=== PATIENT | male | born 1950 | race Caucasian/White ===

== ENCOUNTER 2018-11-19 01:23 | Inpatient (IN) ==
[2018-11-19 02:17] LABS: Hematocrit 43.9 % (37.5-50.1); Hemoglobin 14.7 g/dL (12.9-16.9); Mean Corpuscular HGB Conc 33.5 g/dL (31.6-35.5); Mean Corpuscular Hemoglobin 27.9 pg (28.0-33.3); Mean Corpuscular Volume 83.5 fL (83.0-100.0); Mean Platelet Volume 9.3 fL (9.4-12.4); Platelet Count 250 K/mcL (140-400); Red Blood Count 5.26 M/mcL (4.19-5.50); Red Cell Distribution Width 14.1 % (11.5-14.5)
[2018-11-19 02:18] LABS: Basophils # 0.1 K/mcL (0.0-0.2); Basophils % 0.8 %; Eosinophils # 0.1 K/mcL (0.0-0.6); Eosinophils % 1.8 %; Immature Granulocytes % 0.8 % (0-4); Lymphocytes # 2.7 K/mcL (0.6-4.6); Lymphocytes % 34.4 %; Monocytes # 0.9 K/mcL (0.0-1.3); Monocytes % 11.2 %
[2018-11-19] MEDS ORDERED: Aspirin 325 MG TABLET PO ONE (02:19)
[2018-11-19] MEDS ORDERED: Nitroglycerin 0.4 MG TAB.SUBL SL ONE (02:20)
--- NOTE | 2018-11-19 02:28 | Emergency Department Note ---
Disposition Clinical Impression: NSTEMI (non-ST elevated myocardial infarction) Disposition: Admitted As Inpatient Condition: Good Chest Pain HPI - General Chief Complaint: ED Chest Pain Stated Complaint: CP Time Seen by Provider: 11/19/18 01:38 Source: patient Mode of arrival: private vehicle Limitations: no limitations Vital Signs Reviewed: Yes Nursing Notes Reviewed: Yes - History of Present Illness HPI Narrative: 68-year-old male presents emergency department for evaluation of chest pain that woke him up from sleep around 12:30 AM. Patient states he was sleeping well when he woke up with a midsternal "heartburn" type pain is about a 6 out of 10, he states it did not go away sick in emergency department. He states it does not radiate, does not move. Nothing makes this pain worse, nothing makes this pain better. 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 He states history includes hypertension for which he takes Hydrocort thiazide/Cipro, some prostate problems, prediabetes. He states he is not on any statin medication. He is not a smoker, no drugs or alcohol use. He states he has never had any cardiac history. He has never been told he has had high cholesterol. Pt complaint: chest pain Onset (ago): hour(s) Time: 00:30 Duration: constant Onset: awoke with symptoms Pain Location: substernal Severity: moderate Severity scale (1-10): 5 Quality: other Pain Radiation: none Improves with: nothing Worsens with: nothing Associated symptoms: Denies: nausea, vomiting, diaphoresis, dyspnea, syncope, palpitations, fever, cough, leg swelling Treatments prior to arrival chest pain: none - Related Data On Oral Contraceptives: No Allergies Allergy/AdvReac Type Severity Reaction Status Date / Time No Known Allergies Allergy Verified 11/19/18 01:54 All systems ED: reviewed and negative except as stated. Review of Systems: As Per HPI Constitutional: Denies: fever, chills Cardiovascular: Reports: chest pain, dyspnea on exertion. Denies: palpitations, orthopnea, edema Respiratory: Denies: cough, dyspnea, wheezes Gastrointestinal: Denies: abdominal pain Musculoskeletal: Denies: back pain Chest Pain PMH - Past Medical History Medical history: Reports: hypertension Psychiatric history: Reports: no psych history - Social History Smoking Status: Never smoker Alcohol use: Reports: none Drug use: Reports: none Physical Exam - General Limitations: no limitations General appearance: alert, in no apparent distress - Head Head exam: atraumatic, normocephalic, normal inspection - Eye Eye exam: Present: normal appearance - ENT ENT exam: mucous membranes moist - Neck Neck exam: Present: normal inspection, full ROM, trachea midline. Absent: tenderness, meningismus - Chest Chest inspection: Present: normal inspection, symmetric chest wall rise - Respiratory Respiratory exam: Present: normal lung sounds bilaterally - Cardiovascular Cardiovascular exam: Present: regular rate, irregular rhythm, normal heart sounds - Abdominal Exam Abdominal exam: Present: soft, Non-Tender, normal bowel sounds - Extremities Exam Extremities exam: Present: normal inspection, full ROM, normal capillary refill. Absent: tenderness, pedal edema - Back Exam Back exam: Present: normal inspection, full ROM. Absent: tenderness - Neurological Exam Neurological exam: Present: alert, oriented X3 - Psychiatric Psychiatric exam: Present: normal affect, normal mood - Skin Skin exam: Present: warm, dry, intact, normal color Course Course Narrative: Well-developed male in acute distress. Respirations are easy and even. Patient was slightly hypertensive upon arrival, he is anxious that he does not appear in any distress. He is nondiaphoretic. Not hypoxic. Heart rate is irregular, noted what appears to be bigeminy on the monitor. Initial EKG completed at 01:37 reveals a sinus rhythm with ventricular rate of 95 beats for minute, [place] interval 172 ms, QTC 438 ms, previous EKG was completed 2002, questioning see elevation in V2 V3, very suspicious EKG, reviewed by attending Dr. Acosta, no obvious contiguous leads of ST elevation however giving changes from previous length of time, symptoms will page for interventi onal cardiology. We will give 325 of aspirin, 1 nitroglycerin, obtain chest x-ray and labs. - Reevaluation(s) Reevaluation #1: EKG had been repeated at 02:36, and this EKG does appear normal. Patient has had one dose of nitroglycerin, it did decrease his pain to less than one, he states he feels just a little bit tender but he really is not having any pain. I did speak with on-call medical support assistant Dr. Carter at 0245 regarding patient presentation, symptoms. First EKG and second EKG were sent to Dr. Carter for review, he states he second one does look better, we should initiate heparin drip, nitroglycerin drip, and given Ventolin to 180 mg crushed in a patient continues to have pain a half hour later we should send a STEMI alert. I did talk to patient and his son, they did verbalize understanding of plans, circumstances. All questions were answered appropriately and fully with no further questions. Time: 02:55 Reevaluation #2: Patient remained chest pain-free, he is doing quite well and no evidence of a STEMI. I did speak with hospitalist regarding patient with agreement to except to hospitalist services. Vital Signs Temperature 98.7 F 11/19/18 01:25 Pulse Rate 101 11/19/18 01:25 Respiratory Rate 16 11/19/18 01:25 Blood Pressure 176/102 11/19/18 01:25 O2 Sat by Pulse Oximetry 93 11/19/18 01:25 Temperature 98.7 F 11/19/18 01:25 Pulse Rate 83 11/19/18 02:00 Respiratory Rate 20 11/19/18 02:00 Blood Pressure 165/108 11/19/18 02:00 O2 Sat by Pulse Oximetry 96 11/19/18 02:00 Oxygen Delivery Oxygen Delivery Room Air Chest Pain - Lab Data Result diagrams: 11/19/18 02:03 Lab Results 11/19/18 Range/Units 02:03 WBC 7.9 (4.3-11.1) K/mcL RBC 5.26 (4.19-5.50) M/mcL Hgb 14.7 (12.9-16.9) g/dL Hct 43.9 (37.5-50.1) % MCV 83.5 (83.0-100.0) fL MCH 27.9 L (28.0-33.3) pg MCHC 33.5 (31.6-35.5) g/dL RDW 14.1 (11.5-14.5) % Plt Count 250 (140-400) K/mcL MPV 9.3 L (9.4-12.4) fL Immature Gran % 0.8 (0-4) % Seg Neutrophils % 51.0 % Lymphocytes % 34.4 % Monocytes % 11.2 % Eosinophils % 1.8 % Basophils % 0.8 % Neutrophils # 4.0 (1.6-8.9) K/mcL Lymphocytes # 2.7 (0.6-4.6) K/mcL Monocytes # 0.9 (0.0-1.3) K/mcL Eosinophils # 0.1 (0.0-0.6) K/mcL Basophils # 0.1 (0.0-0.2) K/mcL Heart Score - Score History: Highly Suspicious EKG: Non Specific repolarisation Disturbance Age: Greater than 65 Risk Factors: 1-2 risk factors Troponin: Greater than 3x normal limit HEART Score Total: 8
[2018-11-19 02:39] LABS: BUN/Creatinine Ratio 24 (6-26); Blood Urea Nitrogen 25 mg/dL (8-23); Carbon Dioxide 27 mEq/L (23-29); Chloride 101 mEq/L (98-107); Glucose 170 mg/dL (70-105); Osmolality,Calculated 294 (280-300); Potassium 3.5 mEq/L (3.5-5.1); Sodium 138 mEq/L (136-145); eGFR For Non-African Americans > 60 (> 60)
[2018-11-19 02:48] LABS: Troponin I 0.29 ng/mL (< 0.04)
[2018-11-19] MEDS ORDERED: *HR* Ticagrelor 90 MG TABLET PO ONE (02:58)
[2018-11-19] MEDS ORDERED: *HR* Heparin 5,000 UNIT/ML VIAL IVP ONE (03:00)
[2018-11-19] MEDS ORDERED: Nitroglycerin 25 MG/250 ML INFUS..BTL IVC SCH (03:00)
[2018-11-19] MEDS ORDERED: *HR* Heparin 5,000 UNIT/ML VIAL IVP PRN ×2 (03:00)
[2018-11-19] MEDS ORDERED: Heparin 25,000 UNIT/250 ML D5W 25,000 UNIT/250 ML IV.SOLN IVC SCH (03:00)
[2018-11-19 03:23] LABS: Prothrombin Time 11.2 Seconds (9.4-12.1)
[2018-11-19 03:25] LABS: Activated Partial Thrombo Time 29.9 Seconds (26.0-36.0)
--- NOTE | 2018-11-19 03:37 | Emergency Department Note ---
Disposition Clinical Impression: NSTEMI (non-ST elevated myocardial infarction) Disposition: Admitted As Inpatient Condition: Good General Adult HPI - General Chief complaint: ED Chest Pain Stated complaint: CP Time Seen by Provider: 11/19/18 01:38 Source: patient Mode of arrival: private vehicle Limitations: no limitations Nursing Notes Reviewed: Yes Vital Signs Reviewed: Yes - History of Present Illness Pain Scale: 5 - Related Data Allergies Allergy/AdvReac Type Severity Reaction Status Date / Time No Known Allergies Allergy Verified 11/19/18 01:54 Constitutional: Denies: fever, chills Cardiovascular: Reports: chest pain, dyspnea on exertion. Denies: palpitations, orthopnea, edema Respiratory: Denies: cough, dyspnea, wheezes Gastrointestinal: Denies: abdominal pain Musculoskeletal: Denies: back pain Past Medical History - Past Medical History Medical history: Reports: hypertension Psychiatric history: Reports: no psych history - Social History Smoking Status: Never smoker Smokeless Tobacco Status: No Alcohol use: Reports: none Drug use: Reports: none Physical Exam - General Limitations: no limitations General appearance: alert, in no apparent distress Course Vital Signs Temperature 98.7 F 11/19/18 01:25 Pulse Rate 101 11/19/18 01:25 Respiratory Rate 16 11/19/18 01:25 Blood Pressure 176/102 11/19/18 01:25 O2 Sat by Pulse Oximetry 93 11/19/18 01:25 Temperature 98.4 F 11/19/18 07:00 Pulse Rate 68 11/19/18 07:00 Respiratory Rate 17 11/19/18 07:00 Blood Pressure 152/100 11/19/18 07:00 O2 Sat by Pulse Oximetry 96 11/19/18 07:00 Oxygen Delivery Oxygen Delivery Room Air Medical Decision Making - Medical Records Medical records reviewed: Yes I reviewed the patient's medical records. - Lab Data Lab results reviewed: Yes I reviewed the patient's lab results. Result diagrams: 11/19/18 02:03 11/19/18 02:03 Lab Results 11/19/18 11/19/18 11/19/18 Range/Units 02:03 02:03 02:03 WBC 7.9 (4.3-11.1) K/mcL RBC 5.26 (4.19-5.50) M/mcL Hgb 14.7 (12.9-16.9) g/dL Hct 43.9 (37.5-50.1) % MCV 83.5 (83.0-100.0) fL MCH 27.9 L (28.0-33.3) pg MCHC 33.5 (31.6-35.5) g/dL RDW 14.1 (11.5-14.5) % Plt Count 250 (140-400) K/mcL MPV 9.3 L (9.4-12.4) fL Immature Gran % 0.8 (0-4) % Seg Neutrophils % 51.0 % Lymphocytes % 34.4 % Monocytes % 11.2 % Eosinophils % 1.8 % Basophils % 0.8 % Neutrophils # 4.0 (1.6-8.9) K/mcL Lymphocytes # 2.7 (0.6-4.6) K/mcL Monocytes # 0.9 (0.0-1.3) K/mcL Eosinophils # 0.1 (0.0-0.6) K/mcL Basophils # 0.1 (0.0-0.2) K/mcL PT 11.2 (9.4-12.1) Seconds INR 1.0 APTT 29.9 (26.0-36.0) Seconds Heparin Anti-Xa, Unfract 0.00 L (0.30-0.70) IU/mL Sodium 138 (136-145) mEq/L Potassium 3.5 (3.5-5.1) mEq/L Chloride 101 (98-107) mEq/L Carbon Dioxide 27 (23-29) mEq/L BUN 25 H (8-23) mg/dL Creatinine 1.06 (0.70-1.30) mg/dL Est GFR ( Amer) > 60 (> 60) Est GFR (Non-Af Amer) > 60 (> 60) BUN/Creatinine Ratio 24 (6-26) Glucose 170 H (70-105) mg/dL Calculated Osmolality 294 (280-300) Calcium 10.0 (8.6-10.3) mg/dL Troponin I 0.29 H* (< 0.04) ng/mL Triglycerides 413 H (< 150) mg/dL Cholesterol 196 (< 200) mg/dL LDL Cholesterol, Calc TNP VLDL Cholesterol, Calc TNP HDL Cholesterol 30 L (40-59) mg/dL Cholesterol/HDL Ratio 6.5 H (0-4.9) - Radiology Data Radiology results reviewed: Yes I reviewed the patient's radiology results. Chest X-Ray 11/19/18 01:30 IMPRESSION: Left basilar atelectasis versus scarring. No acute cardiopulmonary disease. D/ / Ernie Arcos MD / Ernie Arcos MD Interpreting Provider: Ernie Arcos MD - EKG Data EKG #1 EKG attestation: Yes I reviewed and interpreted this EKG. EKG results narrative: EKG shows normal sinus rhythm with ventricular rate is 79. No significant ST segment elevation or depression noted. The ST segment elevation in leads V2 and V3 from the earlier EKG have resolved. EKG #2 EKG attestation: Yes I reviewed and interpreted this EKG. EKG results narrative: EKG shows normal sinus rhythm with ventricular rate is 79. No significant ST segment elevation or depression noted. The ST segment elevation in leads V2 and V3 from the earlier EKG have resolved. Critical Care Time Critical Care Time: Yes Total Critical Care Time: 35 Attestation: Critical care performed: Time is exclusive of separately billable procedures. Time includes: direct patient care, patient reassessment, coordination of patient care, interpretation of data (laboratory data, radiology data, and respiratory data), review of patient's medical records, medical consultation and documentation of patient care. Procedures included in critical care time: Procedures excluded from critical care time: Attestation Statement - Attestation Attestation: I, Mark Acosta MD, personally evaluated this patient and discussed their management with the resident physician. I reviewed the resident's note and agree with the documented findings, medical decision making, and plan of care. 68-year-old male presents to the emergency department with a complaint of some very localized mid to upper substernal chest pain which awoke him from sleep about 12:30 AM this morning. Patient rated the pain a 7 out of 10 at the worst. There was no radiation the pain. No shortness of breath. No palpitations. No nausea or vomiting. No diaphoresis. Prior history of any cardiac problems. He does have a history of hypertension. No history of diabetes or hypercholesterolemia. Nonsmoker. At time of my examination the pain has totally resolved. He did receive a sublingual nitroglycerin here with relief of the pain. He also states that he has had similar pains during the night for the past 2 nights but tonight it would not go away. He also states that for about the past 3 months he has noted when he does any heavy lifting or exertion he developed some mild mid chest discomfort. On examination patient is a well-developed well-nourished well-appearing elderly male in no acute distress. He is alert and oriented 3. There is no cyanosis or diaphoresis. Chest is nontender to palpation. Breath sounds are clear and equal bilaterally. Heart regular rate and rhythm. Abdomen soft and nontender with normal bowel sounds. EKG shows normal sinus rhythm with ventricular rate of 95. There is some ST elevation in leads V2 and V3 with no significant reciprocal changes noted. No arrhythmia or ectopy. A repeat EKG was obtained and showed resolution of the ST elevation in V2 and V3. Chest x-ray shows no acute abnormality. Labs reviewed. Troponin 0.29. Case was discussed with the interventional radiologist, Dr. Carter, and he reviewed the 2 EKGs. He recommended starting the patient on nitro drip and heparin infusion and also giving Brilinta. The patient continues to have pain after 30 minutes he would come in and take the patient to [facility]. The hospitalist, Dr. Larios, was consulted and accepted admission of the patient.
[2018-11-19] MEDS ORDERED: Naloxone 0.4 MG/ML INJ IVP PRN (04:46)
--- NOTE | 2018-11-19 04:54 | Internal Med History&Physical ---
Date of Encounter: 11/19/18 Time of Encounter: 04:51 Internal Medicine - H&P: HPI Chief complaint: Chest Pain Admitted From: Emergency Dept Plans for Post Hospital Care: Home History of present illness: Mr. Golden is a 68 year old male with history of hypertension and BPH presents with chest pain. Patient states that he has had substernal chest pressure for about the last 3 months. He states previously he had only occurred with exertion and improved with rest however over the last couple days the chest pain has occurred at rest. She states that last night he began having chest pressure and he attempted to stretch and move around to get it to go away however it would not go away. At this point he presented to the emergency department. Patient was given aspirin, nitroglycerin in the emergency department and he states this completely resolved his chest pressure. He denies any radiation of the pressure. He denies any associated symptoms including shortness of breath, diaphoresis, nausea, vomiting. He states prior to several months goes never had anything like this before. He denies any history of cardiac disease but does state that his father's side have multiple people of had heart attacks in their 60s and 70s. Discussed with patient who wishes to be full code. Past Med Surg Social Fam HX - Past Medical History Medical history: hypertension Psychiatric history: no psych history - Past Surgical History Surgical History: no surgical history - Social History Smoking Status: Never smoker Smokeless Tobacco Status: No Alcohol use: none Drug use: none - Additional Family History Additional family history: Patient reports father, grandfather, and uncles who have had heart attacks in the 60s and 70s Internal Medicine - H&P: Meds Allergy/AdvReac Type Severity Reaction Status Date / Time No Known Allergies Allergy Verified 11/19/18 01:54 All Systems PM: A 10-system review of systems was performed and is negative for pertinent f indings except as documented above in the HPI. Review of systems: 10 point review of systems was obtained and negative other than stated. - Constitutional Constitutional: no chills, no fever(s) - Cardiovascular Cardiovascular ROS IM: chest pain, no dyspnea, no edema, no palpitations - Respiratory Respiratory: no cough, no dyspnea - Gastrointestinal Gastrointestinal: no abdominal pain, no nausea, no vomiting - Constitutional Vitals: Temp Pulse Resp BP Pulse Ox 98.7 F 84 20 132/87 97 11/19/18 01:25 11/19/18 04:34 11/19/18 04:34 11/19/18 04:34 11/19/18 04:34 General appearance: Present: A&O X 3, pleasant, no acute distress Exam: . - Head Head exam: Present: atraumatic, normal inspection, normocephalic - Eye Eye exam: Present: EOMI, PERRL - ENT ENT exam: Present: mucous membranes moist, normal oropharynx - Neck Neck exam general surgery: Present: full ROM. Absent: tenderness - Respiratory Respiratory exam: Present: CTAB. Absent: rales, rhonchi, wheezes - Cardiovascular Cardiovascular exam: Present: RRR. Absent: gallop, irregular rhythm, rubs, systolic murmur - GI/Abdominal GI/Abdominal exam: Present: normal bowel sounds, soft. Absent: distended, tenderness - Extremities Exam Extremities exam: Present: warm. Absent: pedal edema, tenderness - Back Exam Additional comments: Nontender, soft, mobile mass approximately 2 cm in diameter at midline at the level of T2. - Neurological Exam Neurological exam: Present: alert, CN II-XII intact, oriented X3, no focal deficits - Psychiatric Psychiatric exam: Present: normal affect, normal mood - Skin Skin exam: Present: dry, intact, warm Internal Med - H&P Results - Labs CBC & Chem 7: 11/19/18 02:03 11/19/18 02:03 Labs: Short CBC 11/19/18 Range/Units 02:03 WBC 7.9 (4.3-11.1) K/mcL Hgb 14.7 (12.9-16.9) g/dL Hct 43.9 (37.5-50.1) % Plt Count 250 (140-400) K/mcL Neutrophils # 4.0 (1.6-8.9) K/mcL BMP 11/19/18 02:03 Sodium 138 Potassium 3.5 Chloride 101 Carbon Dioxide 27 BUN 25 H Creatinine 1.06 Glucose 170 H Calcium 10.0 Cardiac Enzymes 11/19/18 Range/Units 02:03 Troponin I 0.29 H* (< 0.04) ng/mL - Impressions ITS Impressions Chest X-Ray 11/19/18 01:30 IMPRESSION: Left basilar atelectasis versus scarring. No acute cardiopulmonary disease. D/ / Ernie Arcos MD / Ernie Arcos MD Interpreting Provider: Ernie Arcos MD - Assessment and Plan (1) NSTEMI (non-ST elevated myocardial infarction) Current Visit: Yes Status: Acute Assessment and plan: Patient presents with typical chest pain that is substernal, exacerbated by activity and relieved by rest, and now has worsened to the point that it occurs at rest. EKG reviewed and shows subtle ST elevation in lead 2 and lead 3 that did resolve on second EKG. These were sent to the product applications scientist by the emergency department and he stated that as long as the patient remains chest pain-free at this time there is no indication for urgent heart catheterization. Troponin noted to be elevated at 0.29, we will recheck in 6 hours. Admit the patient to telemetry, start heparin drip and nitro drip for pain relief. Closely monitor patient if he has any new episodes of chest pain will call cardiology urgently. Patient was given aspirin and Brillinta in the emergency department. Check lipid panel, start statin this evening. We will keep patient nothing by mouth for possible heart catheterization. Patient is at high risk for cardiac complication and due to being on therapeutic heparin infusion. (2) Prediabetes Current Visit: Yes Status: Acute Assessment and plan: Patient states that he is "prediabetic" and does not take any medications for diabetes. Glucose on admission is noted to be 170. We will institute low-dose sliding scale. We will check hemoglobin A1c. (3) HTN (hypertension) Current Visit: Yes Status: Acute Assessment and plan: Patient hypertensive upon arrival with blood pressure 176/102. Has improved to 136/93 with nitroglycerin drip. Patient is unsure exactly of what blood pressure medications he takes. Patient is currently nothing by mouth, will restart home blood pressure medications once he is no longer nothing by mouth and that these are confirmed. Qualifiers: Hypertension type: essential hypertension Qualified Code(s): I10 - Essential (primary) hypertension (4) Lipoma Current Visit: Yes Status: Suspected Assessment and plan: Patient has a soft, mobile mass on the upper part of his back. I did discuss with the patient that this is likely a lipoma and have recommended outpatient follow-up with his PCP for further management options. Qualifiers: Lipoma location: trunk Qualified Code(s): D17.1 - Benign lipomatous kurt plasm of skin and subcutaneous tissue of trunk (5) DVT prophylaxis Current Visit: Yes Status: Acute Assessment and plan: Patient currently on therapeutic heparin drip - Time Spent With Patient Total time spent is greater than 50% in coordination of care (as documented) at patient's floor/unit and/or counseling patient:
[2018-11-19] MEDS ORDERED: *HR* Dextrose 50 % in Water (Syg) 50 ML SYRINGE IVP PRN (04:58)
[2018-11-19] MEDS ORDERED: D5% in Water 1,000 ML IVC PRN (04:58)
[2018-11-19] MEDS ORDERED: Dextrose Gel 15 GM/37.5 ML TUBE PO PRN ×2 (04:58)
[2018-11-19 05:59] LABS: Chol/HDL Ratio 6.5 (0-4.9); Cholesterol 196 mg/dL (< 200); HDL Cholesterol 30 mg/dL (40-59); Triglycerides 413 mg/dL (< 150)
[2018-11-19] MEDS: Insulin LISPRO 300 UNITS/3 ML VIAL SQ SCH ×3 (07:13→18:03)
--- NOTE | 2018-11-19 08:46 | Internal Med Progress Note ---
<Ambrose Wesley N - Last Filed: 11/19/18 13:28> Hospitalist Progress Note - Encounter Date of Encounter: 11/19/18 Time of Encounter: 09:00 - Subjective Interval History: Patient seen and examined at bedside this morning with family present. Patient was admitted with unstable angina and elevated troponin raising concern for non- ST elevated [place]. Overnight patient remained on a nitroglycerin and heparin drip. Asymptomatic throughout the night, no tachycardia, chest pain, or shortness of breath. Repeat troponin this morning was significantly elevated at 48. Stat EKG was obtained which showed new T-wave inversions in the anterolateral leads and a mild ST elevation in V2. Patient was hemodynamically stable, was taken to [facility] where a drug-eluting stent was placed in the LAD. - Exam Vitals: Temp Pulse Resp BP Pulse Ox 98.4 F 68 17 152/100 96 11/19/18 07:00 11/19/18 07:00 11/19/18 07:00 11/19/18 07:00 11/19/18 07:00 Exam: General: Alert and oriented, no acute distress HEENT: Head is atraumatic and normocephalic, pupils are equal and round, and extraocular muscles are intact Neck: no JVD, trachea midline Chest: symmetrical chest wall rise, no tenderness to palpation Cardiovascular: RRR, no murmurs Respiratory: CTA b/l, no rales ronchi or wheezing Abdomen: soft nontender, no guarding or rigidity Extremities: no cyanosis, clubbing or edema Skin: no jaundice, no lesions Neurological: no obvious focal neurological deficits Psych: appropriate mood and affect - Assessment and Plan (1) NSTEMI (non-ST elevated myocardial infarction) Current Visit: Yes Status: Acute Assessment and Plan: 3 month history of stable angina, followed by one episode of chest pain at rest overnight Initial troponin elevated at 0.29, received aspirin and brillinta in ED, heparin and nitro drips overnight Patient asymptomatic overnight, no CP or SOB Repeat troponin this morning over 48 Patient went for cardiac catheterization where a MEG was placed Patient started on metoprolol, lipitor, and brillinta Continue management per cardiology echo pending continue medical management, started on metoprolol, address diabetes (hgb A1c 6.6%) (2) HLD (hyperlipidemia) Current Visit: Yes Status: Acute Assessment and Plan: started on lipitor daily (3) HTN (hypertension) Current Visit: Yes Status: Acute Assessment and Plan: continue home antihypertensives Cardiology added metoprolol daily continue to monitor (4) Type 2 diabetes mellitus Current Visit: Yes Status: Acute Assessment and Plan: new diagnosis Hgb A1c 6.6% NSTEMI with stent to LAD continue SSI in hospital Outpatient follow up and management strongly recommended (5) DVT prophylaxis Current Visit: Yes Status: Acute Assessment and Plan: EPCDs - Time Spent with Patient Total time spent is greater than 50% in coordination of care (as documented) at patient's floor/unit and/or counseling patient: Internal Medicine: Result - Labs CBC & Chem 7: 11/19/18 02:03 11/19/18 02:03 Labs: Short CBC 11/19/18 Range/Units 02:03 WBC 7.9 (4.3-11.1) K/mcL Hgb 14.7 (12.9-16.9) g/dL Hct 43.9 (37.5-50.1) % Plt Count 250 (140-400) K/mcL Neutrophils # 4.0 (1.6-8.9) K/mcL BMP 11/19/18 02:03 Sodium 138 Potassium 3.5 Chloride 101 Carbon Dioxide 27 BUN 25 H Creatinine 1.06 Glucose 170 H Calcium 10.0 Cardiac Enzymes 11/19/18 Range/Units 02:03 Troponin I 0.29 H* (< 0.04) ng/mL - ABG Interpretation ABG results: PT/INR, D-dimer PT 11.2 Seconds (9.4-12.1) 11/19/18 02:03 - Impressions Impressions Chest X-Ray 11/19/18 01:30 IMPRESSION: Left basilar atelectasis versus scarring. No acute cardiopulmonary disease. D/ / Ernie Arcos MD / Ernie Arcos MD Interpreting Provider: Ernie Arcos MD Consult Discharge Plan - Plan Referrals: NONE,PCP [Primary Care Provider] - <Andrea Navarrete - Last Filed: 11/19/18 16:17> Hospitalist Progress Note - Encounter Date of Encounter: 11/19/18 - Exam Vitals: Temp Pulse Resp BP Pulse Ox 98.7 F 59 18 142/86 94 11/19/18 15:35 11/19/18 15:35 11/19/18 15:35 11/19/18 15:35 11/19/18 15:35 - Assessment and Plan (1) NSTEMI (non-ST elevated myocardial infarction) Current Visit: Yes Status: Acute (2) Prediabetes Current Visit: Yes Status: Acute (3) Lipoma Current Visit: Yes Status: Suspected (4) HTN (hypertension) Current Visit: Yes Status: Acute (5) DVT prophylaxis Current Visit: Yes Status: Acute - Time Spent with Patient Total time spent is greater than 50% in coordination of care (as documented) at patient's floor/unit and/or counseling patient: Internal Medicine: Result - Labs CBC & Chem 7: 11/19/18 02:03 11/19/18 02:03 Labs: Short CBC 11/19/18 Range/Units 02:03 WBC 7.9 (4.3-11.1) K/mcL Hgb 14.7 (12.9-16.9) g/dL Hct 43.9 (37.5-50.1) % Plt Count 250 (140-400) K/mcL Neutrophils # 4.0 (1.6-8.9) K/mcL BMP 11/19/18 02:03 Sodium 138 Potassium 3.5 Chloride 101 Carbon Dioxide 27 BUN 25 H Creatinine 1.06 Glucose 170 H Calcium 10.0 Cardiac Enzymes 11/19/18 11/19/18 Range/Units 02:03 08:41 Troponin I 0.29 H* 48.71 H* (< 0.04) ng/mL - ABG Interpretation ABG results: PT/INR, D-dimer PT 11.2 Seconds (9.4-12.1) 11/19/18 02:03 - Impressions Impressions Chest X-Ray 11/19/18 01:30 IMPRESSION: Left basilar atelectasis versus scarring. No acute cardiopulmonary disease. D/ / Ernie Arcos MD / Ernie Arcos MD Interpreting Provider: Ernie Arcos MD - Attending Attestation I examined this patient and my medical decision-making was reviewed with the Resident Physician on 11/19/18. I agree with the documented findings, disposition and treatment plan as described except to the extent set forth below. Mr Golden is currently admitted for acute NSTEMI/ACS. He remains moderate to high risk due to potential for worsening clinical status. Mr Golden had abrupt elevation in troponin. He was taken to [facility] and stent placed. At this time he is feeling OK. No pain. Exam alert Comfortable Mucus membranes dry Heart reg - not tachy No wheeze abd soft No edema I/P 1. NSTEMI s/p LHC 2. HTN 3. CAD Further diagnoses and plan as above. <Ambrose Wesley N - Last Filed: 11/19/18 13:28> (3) HTN (hypertension) Qualifiers: Hypertension type: essential hypertension Qualified Code(s): I10 - Essential (primary) hypertension <Andrea Navarrete A - Last Filed: 11/19/18 16:17> (3) Lipoma Qualifiers: Lipoma location: trunk Qualified Code(s): D17.1 - Benign lipomatous neoplasm of skin and subcutaneous tissue of trunk (4) HTN (hypertension) Qualifiers: Hypertension type: essential hypertension Qualified Code(s): I10 - Essential (primary) hypertension
--- NOTE | 2018-11-19 09:33 | Cardiology Consult Note ---
<Jamie Torres - Last Filed: 11/19/18 10:21> Date of Encounter: 11/19/18 Time of Encounter: 09:30 Assessment and Plan (1) NSTEMI (non-ST elevated myocardial infarction) Current Visit: Yes Status: Acute Per Cardiology: Troponin 0.29 and now 48.71. Received Brilinta load and asa. On statin, heparin drip, nitroglycerin drip. Currently chest pain-free. We will add nasal cannula oxygen, beta capo, check echocardiogram. I had lengthy discussion with patient and family regarding further ischemic evaluation. Patient and family agreeable to left heart catheterization. Plan for catheterization today. Primary service notified. All questions answered. Discussed and reviewed with Dr. Arroyo and Dr. Catrer. Further recommendations after catheterization and echo. (2) HTN (hypertension) Current Visit: Yes Status: Acute Per Cardiology: Systolic blood pressures in the 150s, adding beta capo. Qualifiers: Hypertension type: essential hypertension Qualified Code(s): I10 - Essential (primary) hypertension Discussion w patient/family: The assessment and plan as outlined above was discussed with the patient and/or family members who expressed understanding and agreement. All questions were answered. Thank you for involving us in the care of your patient. Please call with any questions. History of Present Illness Consult date: 11/19/18 Consult reason: NSTEMI Chief complaint: CP History of present illness: Mr. Golden is a 68 year old male with a relevant past medical history of hypertension and OA. Past family history of CAD with father. Cardiology consult for chest pain and troponin elevation. Patient seen with family at bedside. 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 He indicates over the past few months intermittent episodes of mid sternal epigastric burning/aching sensation with exertion that subsides after a few minutes with rest. He denies any worsening fatigue or shortness of breath with exertion. He indicates the past 3 evenings symptoms developed while essentially at rest. He indicates yesterday evening symptoms continued at least for 30 minutes he finally called family to come to the ER. Currently chest pain-free. He denies any palpitations, dizziness, falls. Denies any active bleeding or blood loss. Denies any past history of CAD. Has never had ischemic evaluation. Denies any smoking history. Past Med Surg Social Fam HX - Past Medical History Attestation: Yes The following information was validated with the patient. Source: patient, old records reviewed, obtained from family Medical history: hypertension Psychiatric history: no psych history - Past Surgical History Surgical History: no surgical history - Social History Smoking Status: Never smoker Smokeless Tobacco Status: No Alcohol use: none Drug use: none Medications and Allergies Lisinopril [Zestril] 40 mg PO DAILY 11/19/18 [History] Naproxen Sodium [Aleve] 440 mg PO QAM PRN 11/19/18 [History] Tamsulosin HCl [Flomax] 0.4 mg PO DAILY 11/19/18 [History] amLODIPine [Norvasc] 10 mg PO DAILY 11/19/18 [History] hydroCHLOROthiazide [Hydrochlorothiazide] 25 mg PO DAILY 11/19/18 [History] Allergy/AdvReac Type Severity Reaction Status Date / Time No Known Allergies Allergy Verified 11/19/18 01:54 All Systems Review: The remainder of the systems were reviewed and are negative - Cardiovascular Cardiovascular: as per HPI, chest pain at rest, chest pain with exertion Physical Examination Vital Signs, Last 4 Hours Temp Pulse Resp BP Pulse Ox 11/19/18 07:00 98.4 F 68 17 152/100 96 11/19/18 06:00 95 11/19/18 05:40 75 12 145/105 93 General: Conversant, No Apparent Distress HEENT: Atraumatic, Normocephaly, Mucus Membranes Moist Neck: No JVD, Normal carotid pulses Cardiac: Reg Rate and Rhythm, Normal S1 and S2, No Murmur Lungs: Normal Breath Sounds, No Wheeze, Rales, Rhonchi Neuro: Alert and responsive, No focal deficits noted Abdomen: Soft, Non-Tender Skin: No rashes noted on visualized skin Musculoskeletal: No Chest Wall Tenderness Extremities: No Clubbing, No Cyanosis, No Edema, Normal Pulses Results 11/19/18 02:03 11/19/18 02:03 Lab Results Laboratory Tests 11/19/18 11/19/18 11/19/18 02:03 02:03 02:03 Hgb 14.7 Hct 43.9 INR 1.0 Creatinine 1.06 Est GFR (Non-Af Amer) > 60 Troponin I 0.29 H* 11/19/18 08:41 Hgb Hct INR Creatinine Est GFR (Non-Af Amer) Troponin I 48.71 H* ITS Impressions Chest X-Ray 11/19/18 01:30 IMPRESSION: Left basilar atelectasis versus scarring. No acute cardiopulmonary disease. D/ / Ernie Arcos MD / Ernei Arcos MD Interpreting Provider: Ernie Arcos MD Active Medications Atorvastatin Calcium (Lipitor) 40 mg PO HS MATT Stop: 05/22/19 21:01 Dextrose/Water (Dextrose 50% (Syg)) 25 ml IVP AD PRN PRN Reason: Hypoglycemia Stop: 05/21/19 04:59 Glucagon (Glucagen) 1 mg IM ONCE PRN PRN Reason: Hypoglycemia Stop: 05/21/19 04:59 Glucose (Gluctose) 15 gm PO ONCE PRN PRN Reason: Hypoglycemia Stop: 05/21/19 04:59 Glucose (Gluctose) 30 gm PO ONCE PRN PRN Reason: Hypoglycemia Stop: 05/21/19 04:59 Heparin Sodium (Porcine) (Heparin) 4,000 unit IVP Q6HR PRN PRN Reason: SEE COMMENTS Stop: 05/21/19 03:01 Heparin Sodium (Porcine) (Heparin) 2,000 unit IVP Q6H PRN PRN Reason: SEE COMMENTS Stop: 05/21/19 03:01 Heparin Sodium/Dextrose (Heparin 25,000 Unit/250 Ml D5w) 25,000 unit in 250 mls @ 9.976 mls/hr IVC .Q24H MATT; Protocol Stop: 05/21/19 03:01 Last Titration: 11/19/18 09:10 Dose: 10.7 unit/kg/hr, 12.3 mls/hr Nitroglycerin (Nitroglycerin Premix 25 Mg/250 Ml) 25 mg in 250 mls @ 3 mls/hr IVC .Q24H MATT; Protocol Stop: 05/21/19 03:01 Last Titration: 11/19/18 05:46 Dose: 10 mcg/min, 6 mls/hr Dextrose (Dextrose 5%) 1,000 mls @ 100 mls/hr IVC .Q10H PRN PRN Reason: HYPOGLYCEMIA Stop: 05/21/19 04:59 Insulin Human Lispro (Humalog) 0 units SQ Q6HR MATT; Protocol Stop: 05/21/19 06:01 Last Admin: 11/19/18 07:13 Dose: Not Given Naloxone HCl (Narcan) 0.4 mg IVP Q2M PRN PRN Reason: SEE COMMENTS Stop: 05/21/19 04:47 - Imaging and Cardiology Echo: pending Cardiac cath: pending - EKG Interpretation EKG results cardiology: personally reviewed, sinus rhythm Consult Discharge Plan - Plan Referrals: NONE,PCP [Primary Care Provider] - <AlexandrudaltonRose - Last Filed: 11/19/18 13:20> Date of Encounter: 11/19/18 - Attending Attestation I examined this patient and my medical decision-making was reviewed with the [facility]. I agree with the documented findings, disposition and treatment plan as described. Assessment and Plan Discussion w patient/family: The assessment and plan as outlined above was discussed with the patient and/or family members who expressed understanding and agreement. All questions were answered. Thank you for involving us in the care of your patient. Please call with any questions. History of Present Illness History of present illness: Mr. Golden is a 68 year old male All Systems Review: The remainder of the systems were reviewed and are negative Physical Examination Vital Signs, Last 4 Hours Temp Pulse Resp BP Pulse Ox 11/19/18 12:03 98.7 F 65 16 155/96 95 11/19/18 10:15 148/95 Results 11/19/18 02:03 11/19/18 02:03 Lab Results 11/19/18 11/19/18 11/19/18 02:03 02:03 02:03 WBC 7.9 Hgb 14.7 Hct 43.9 Plt Count 250 INR 1.0 APTT 29.9 Sodium 138 Potassium 3.5 Chloride 101 Carbon Dioxide 27 BUN 25 H Creatinine 1.06 Glucose 170 H Calcium 10.0 Troponin I 0.29 H* 11/19/18 08:41 WBC Hgb Hct Plt Count INR APTT Sodium Potassium Chloride Carbon Dioxide BUN Creatinine Glucose Calcium Troponin I 48.71 H*
[2018-11-19 09:59] LABS: Estimated Average Glucose 143 mg/dl; Hemoglobin A1C 6.6 %
--- NOTE | 2018-11-19 10:28 | Event Note ---
Date of Encounter: 11/19/18 Time of Encounter: 10:30 - Cardiology Event Note ER called regarding patient with history of chest pain for past several days that worsened today and improved significantly with Aspirin and NTG. Initial EKG concerning for borderline anterior current of injury but ST returned to bas huy on repeat EKG. Reported to me that his chest discomfort had resolved. I advised maximal medical therapy. Plan for LHC in the AM, or earlier if patient's chest pressure recurred.
[2018-11-19] MEDS ORDERED: 0.9 % Sodium Chloride 1,000 ML ONE (10:41)
[2018-11-19] MEDS ORDERED: ISOVUE-370 200 ML INFUS..BTL ONE ×2 (10:41→11:37)
[2018-11-19] MEDS ORDERED: *HR* Heparin 10,000 UNIT/10 ML VIAL ONE (10:41)
[2018-11-19] MEDS ORDERED: Heparin 1,000 UNITS/500 mL 500 ML ONE (10:41)
[2018-11-19] MEDS ORDERED: Nitroglycerin 1,000 MCG/10 ML VIAL IV ONE (10:41)
--- NOTE | 2018-11-19 10:41 | Pre-Sedation Evaluation ---
Pre-sedation evaluation - Pre-sedation checklist Date of procedure: 11/19/18 Procedure: Heart Cath Recent Vitals: Last Vital Signs Temp 98.4 F 11/19/18 07:00 Pulse 68 11/19/18 07:00 Resp 17 11/19/18 07:00 BP 148/95 11/19/18 10:15 Pulse Ox 96 11/19/18 07:00 H&P (including ROS) documented in medical record: Yes Previous reaction to sedatives/anesthetics: No Dietary Status: NPO after Midnight Dentition: poor dentition ASA Classification *see protocol: CLASS II-Mild systemic disease Plan of Care: Pt appropriate candidate for procedure/moderate/conscious sedation, Risks/benefits of procedure/sedation discussed w/ patient/family Cardiac Registry (Cardio Only) - Functional Capacity Functional Capacity: >=4 METS with symptoms - Clincal Frailty Scale Clinical Frailty Scale: Managing Well
[2018-11-19] MEDS ORDERED: *HR* Midazolam HCl 2 MG/2 ML VIAL ONE ×3 (10:46→11:20)
[2018-11-19] MEDS ORDERED: *HR* FentaNYL (PF) 100 MCG/2 ML VIAL ONE ×2 (10:46→11:19)
[2018-11-19] MEDS ORDERED: Tirofiban 12.5 MG/250ML 12.5 MG/250 ML BAG ONE (10:47)
[2018-11-19] MEDS ORDERED: Verapamil 5 MG/2 ML VIAL ONE (10:50)
[2018-11-19] MEDS ORDERED: Ondansetron 4 MG/2 ML VIAL IVP PRN (11:57)
--- NOTE | 2018-11-19 12:03 | Invasive Diagnostic Lab Proc ---
Name: Dutch Golden Date of Study: 11/19/2018 Date: 1950 Ht: 70.9in Medical Record#: [id number] Age: 68 Wt: 251.33lb Gender: Male BSA: 2.32 Order #: [id number] BMI: 35.19 Physicians Procedure Physician: Yo Carter MD, [facility] Referring MD: Referring MD: Staff Name Position Time In Sites, Bonny RT (R) Monitor 10:50 AM Jaime Eldridge RN Record Maker 10:50 AM Rupert Gilliland RT (R) Scrub 10:50 AM Indications Indication Non-Stemi Procedures Performed Procedure L HRT ARTERY/VENTRICLE ANGIO PRQ CARD MEG STENT W/ANGIO 1 VSL Pre-Procedure Checklist Informed consent is complete signed and on chart. H&P is on chart. ID band is on and ID verified with patient. Patient NPO for procedure The procedure was described for the patient and questions were answered. ECG is on chart. Plan of Care Patient will tolerate the procedure without complications. Adequate level of comfort will be maintained. Hemodynamics will remain stable Patient will recover from procedure without complications. Respiratory function will be maintained. Cardiac rhythm will remain stable. Patient temperature will be maintained. Patient and/or family have verbalized understanding of the procedure. Patient Education Chief Complaint/Reason for Test: Cardiac Cath Developmental Category: Adult (18-64 years) Developmentally Appropriate for Age: Yes Learning Barriers: None Education Needs: Procedure Education Method: Verbal Information Taught: Cardiac Cath Educational Evaluation: Able to repeat information Intravenous Access Time IV Size Location DC'd Fluid/Drip Rate Units RN 08:33 AM 18g 1 1/4" Patent On Arrival Lt Antecubital 0.9NaCl 50 ml/hr Jaime Eldridge RN 08:33 AM 18g 1 1/4" Patent On Arrival Lt Arm Allergies No Known Allergies Vital Signs Time BP (mmHg) HR (bpm) O2 Sat. RR (bpm) LOC 11:09 AM / % 5 = Fully awake and oriented or at pre-proc level 11:09 AM / % 4 = Oriented but drowsy 11:24 AM / % 4 = Oriented but drowsy 11:09 AM 148 / 97 72 97 % 15 11:13 AM 155 / 92 70 95 % 16 11:18 AM 133 / 78 73 94 % 21 11:23 AM 126 / 75 61 95 % 14 11:28 AM 120 / 81 65 94 % 9 11:33 AM 135 / 86 78 94 % 17 11:38 AM 132 / 81 65 94 % 22 11:43 AM 136 / 84 89 93 % 19 Procedural Medications Time Medication Dose Units Method Given By 11:08 AM Oxygen 2 L/min nasal cannula Jaime Eldridge RN 11:09 AM Versed 2 mg Intravenous Jaime Eldridge RN 11:09 AM Fentanyl 50 mcg Intravenous Jaime Eldridge RN 11:10 AM Lidocaine 2% 0.5 ml Subcutaneous Yo Carter MD, [facility] 11:13 AM Heparin 2000 units Nitroglycerin 200 mcg Verapamil 2.5 mg Intraarterial Yo Carter MD, [facility]ACC 11:19 AM Versed 1 mg Intravenous Jaime Eldridge RN 11:19 AM Fentanyl 25 mcg Intravenous Jaime Eldridge RN 11:38 AM Versed 1 mg Intravenous Jaime Eldridge RN 11:38 AM Fentanyl 25 mcg Intravenous Jaime Eldridge RN 11:39 AM Versed 1 mg Intravenous Jaime Eldridge RN 11:39 AM Fentanyl 25 mcg Intravenous Jaime Eldridge RN ASA Classification: CLASS II- Mild systemic disease (i.e. well-controlled diabetes, hypertension, asthma, cigarette smoking) Addis Score Preprocedure Postprocedure Activity 2- Moves 4 extremities sustained head lift Activity 2- Moves 4 extremities sustained head lift Circulation 2- SBP +/= 20 points of pre-anesthetic level Circulation 2- SBP +/= 20 points of pre-anesthetic level Consciousness 2- Awake and alert oriented x 3 Consciousness 2- Awake and alert oriented x 3 O2 Saturation 2- Able to maintain O2 satruation of 92% on room air O2 Saturation 2- Able to maintain O2 satruation of 92% on room air Respiratory 2- Able to deep breathe and cough well Respiratory 2- Able to deep breathe and cough well Total Score 10 Total Score 10 Contrast Agent: Isovue Diagnostic Contrast: 145 ml Total Contrast: 145 ml Fluoro Dose: 70 mGy Activated Clotting Time Time Seconds to Clot 11:22 AM 400 Procedure Log Time Note Enter By 10:49 AM CathStat 10:50 AM Bonny Mcintosh RT (R) Position: Monitor Time in: 10:50 tsites 10:50 AM Jaime Eldridge RN Position: Record Maker Time in: 10:50 tsites 10:50 AM Rupert Gilliland RT (R) Position: Scrub Time in: 10:50 tsites 10:50 AM Patient charges- Angio tray pack, Navilyst 3mm J, Pulse Oximetry and ACIST tubing and transducer tsites 10:50 AM IV Supplies used: J loop Angio Cath. tsites 11:04 AM Case Start 11:04 AM CathStat 11:04 AM Vitals capture started with the following parameters, Patient=Adult, Interval=5 min, Initial Zdvfertc=391 mmHg, Deflation Rate=3 mmHg, Cuff placed on Right Arm 11:07 AM Vitals capture stopped. 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 Informed consent was obtained. [facility] 11: AM Procedure start : [facility] : AM Hair removed from procedure site in holding area using clippers. Right wrist and Right groin prepped with Chloraprep by Bonny Mcintosh), then patient was draped. Skin intact. tsites : AM Time: : Oxygen on at 2 L/min per nasal cannula by Jaime Eldridge RN [facility] : AM Recorded ECG: HR=73 Condition=Condition 1 11: AM Time: 11:08 Patient comfortable and pain free: Yes [facility] : AM Time: :LOC: 5 = Fully awake and oriented or at pre-proc level [facility] 11: AM Clinical Presentation: Non-STEMI [facility] 11: AM HR=72 bpm, GCIQ=683/97 mmhg, SpO2=97 %, Resp=15 B/min 11: AM Time: : Versed 2 mg Intravenous Given by Jaime Eldridge RN [facility] : AM Time: : Fentanyl 50 mcg Intravenous Given by Jaime Eldridge RN [facility] 11:10 AM Pressure channel 1 zeroed. 11:11 AM Time: 11:10 0.5 ml Lidocaine 2% to right radial Subcutaneous Given by Yo Carter MD, [facility] 11:12 AM Access obtained by percutaneous puncture. 5Fr 10cm Terumo Glidesheath sheath placed in right Radial artery. [id number] tsites 11:13 AM Time: 11:13 Patient given 2,000 units Heparin, 200 mcg Nitroglycerin, and 2.5 mg Verapamil Intraarterial by Yo Carter MD, [facility]. This is given to reduce risk of vessel spasm and thrombosis. tsites 11:13 AM HR=70 bpm, IBZM=600/92 mmhg, SpO2=95.0 %, Resp=16 B/min, EtCO2=36 mmHg 11:13 AM 5Fr TIG catheter inserted over the wire [facility] tsites 11:13 AM 0.035 260cm Navilyst 3mmJ wire [id number] tsites 11:14 AM RCA angiography performed in multiple views. tsites 11:15 AM Recorded Pressure: Ao, HR=75, Condition=Condition 1 (Aorta) Ao 100/77/89 11:15 AM LCA angiography performed in multiple views. tsites 11:15 AM Recorded Pressure: Ao, HR=69, Condition=Condition 1 (Aorta) Ao 94/38/81 11:16 AM Lesion found in Mid LAD. Pre Stenosis: 99 Pre GILBERTO Flow: 2: Partial Flow/Perfusion (> 1 but < 3) tsites 11:17 AM wire reinserted catheter removed tsites 11:18 AM PCI Status Urgent tsites 11:18 AM HR=73 bpm, CPGY=720/78 mmhg, SpO2=94.0 %, Resp=21 B/min 11:18 AM 6Fr RBL 3.5 Convey guide catheter was used to cannulate the PCI vessel successfully. reused? No tsites 11:18 AM Inflation device was opened. tsites 11:19 AM Time: 11:19 Versed 1 mg Intravenous Given by Jaime Eldridge RN tsites 11:19 AM Time: 11:19 Fentanyl 25 mcg Intravenous Given by Jaime Eldridge RN tsites 11:20 AM Recorded Pressure: Ao, HR=74, Condition=Condition 1 (Aorta) Ao 135/16/82 11:21 AM .014 [place] 190cm guide wire across target lesion- successful. reused? No tsites 11:22 AM 2.0 mm x 20 mm Emerge Monorail balloon across target lesion- successful. reused? No tsites 11:22 AM At 11:22 the ACT was [id number] seconds. tsites 11:23 AM HR=61 bpm, CXRQ=953/75 mmhg, SpO2=95.0 %, Resp=14 B/min, EtCO2=36 mmHg 11:24 AM Time: 11:09LOC: 4 = Oriented but drowsy tsites 11:24 AM Time: 11:09 Patient comfortable and pain free: Yes tsites 11:24 AM Balloon inflated @ 10 norman for 13 seconds tsites 11:24 AM Recorded Pressure: Ao, HR=65, Condition=Condition 1 (Aorta) Ao 111/77/94 11:25 AM Balloon catheter removed intact. tsites 11:27 AM 2.75mm x 24mm Synergy drug-eluting stent across target lesion- successful Lot #[id number] tsites 11:28 AM Stent deployed @ 18 norman for 21 seconds tsites 11:28 AM HR=65 bpm, YOWA=986/81 mmhg, SpO2=94.0 %, Resp=9 B/min 11:28 AM Stent delivery system removed intact. tsites 11:29 AM Lesion found in Mid LMCA. Pre Stenosis: 45 Pre GILBERTO Flow: tsites 11:30 AM Lesion found in 1st Marginal. Pre Stenosis: 100 Pre GILBERTO Flow: tsites 11:30 AM Lesion found in Distal LAD. Pre Stenosis: 95 Pre GILBERTO Flow: tsites 11:32 AM Wire removed tsites 11:32 AM Stent delivery system removed intact. tsites 11:32 AM wire reinserted catheter removed tsites 11:32 AM 5Fr Pigtail catheter inserted over the wire DNC tsites 11:33 AM Lesion found in Mid RCA. Pre Stenosis: 30 Pre GILBERTO Flow: tsites 11:33 AM HR=78 bpm, NJYR=227/86 mmhg, SpO2=94 %, Resp=17 B/min 11:33 AM Lesion found in Distal RCA. Pre Stenosis: 70 Pre GILBERTO Flow: tsites 11:33 AM Left Main Coronary Artery with 45% stenosis tsites 11:33 AM Mid/Distal Left Anterior Descending Coronary Artery and diagonal branches with 99% stenosis. If graft is supplying this area, 0 % stenosis tsites 11:33 AM Circumflex, Obtuse Marginal, Left Posterior Descending, and Left Posterolateral Coronary Arteries with 100 % stenosis. If graft is supplying this area, 0 % stenosis tsites 11:34 AM Right Coronary, Right Posterior Descending Arteries with Right Posterolateral and Acute Marginal branches with 70 % stenosis. If graft is supplying this area, 0 % stenosis tsites 11:34 AM Coronary Dominance: right tsites 11:34 AM Catheter crossed the aortic valve and was selectively placed in the left ventricle. Pressures recorded on pullback for left heart catheterization. tsites 11:34 AM Pressure channel 1 zero failed. 11:34 AM Pressure channel 1 zero failed. 11:34 AM Pressure channel 1 zero failed. 11:34 AM Pressure channel 1 zero failed. 11:34 AM Pressure channel 1 zeroed. 11:34 AM Recorded Pressure: LV, HR=65, Condition=Condition 1 (Left Ventricle) LV 140/14/24 11:35 AM Bolus angiogram of left Ventricle complete: 10 ml/sec for a total of 20 mls tsites 11:36 AM Catheter removed tsites 11:37 AM rbl reinserted tsites 11:38 AM Time: 11:38 Versed 1 mg Intravenous Given by Jaime Eldridge RN [facility] 11:38 AM Time: 11:38 Fentanyl 25 mcg Intravenous Given by Jaime Eldridge RN [facility] 11:38 AM HR=65 bpm, BNJX=317/81 mmhg, SpO2=94.0 %, Resp=22 B/min 11:39 AM Time: 11:24 Patient comfortable and pain free: Yes tsites 11:39 AM Time: 11:24LOC: 4 = Oriented but drowsy tsites 11:39 AM Time: 11:39 Versed 1 mg Intravenous Given by Jaime Eldridge RN tsites 11:39 AM Time: 11:39 Fentanyl 25 mcg Intravenous Given by Jaime Eldridge RN tsites 11:41 AM Catheter removed tsites 11:42 AM Procedure completed at 11:42 11/19/2018 [facility] 11:42 AM Did you address GILBERTO flow and Dominance? Yes tsites 11:43 AM Sign out completed: Radiation Dose 970 mGy, 69.8 cGy/cm2 Fluoro Time: 8.0 Isovue 370 - 200ml contrast 145 ml given by Yo Carter MD, [facility]. Complications: None. 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 Sedation minutes 34. Cardiac Rehab Consult needed: Yes. Confirmed administered medications: Yes tsites 11:43 AM Isovue 370 - 200ml,1 Bottle(s) used. tsites 11:43 AM Arterial sheath pulled, Vasc Band closure device used and was Successful S/N. tsites 11:43 AM 12 ml air in Vasc Band. tsites 11:43 AM HR=89 bpm, EMJE=211/84 mmhg, SpO2=93.0 %, Resp=19 B/min 11:43 AM Estimated Blood Loss: less than 20cc tsites 11:43 AM Post ECG NSR tsites 11:43 AM Post Blood Pressure 136/84 tsites 11:44 AM 11:44 Post Pulses Rt Radial 1+ tsites 11:44 AM Information taught Cardiac Cath, PCI, and Vasc Band tsites 11:44 AM Education needs Procedure, Plan of Care, and Responsibilities of Patient in Care tsites 11:44 AM Learning barriers :None tsites 11:44 AM Education Methods Verbal tsites 11:44 AM Education evaluation Able to repeat information tsites 11:44 AM Site status No bleeding/hematoma - Rt Wrist as reported by Rupert Gilliland RT (R) at 11:44 tsites 11:44 AM Delay to floor No tsites 11:44 AM Patient out of room: 11:44 tsites 11:44 AM Family placed in consult room. tsites 11:47 AM Report given to sunitha OREILLY Pt taken to 2 [facility] Room #28. 11:47 tsites Complications Complication None Hemodynamics Pressures Site Systolic/A Wave Diastolic/V Wave Mean AO 100 77 89 AO 94 38 81 AO 135 16 82 AO 111 77 94 LV 140 14 24 Post Procedure Information Blood Pressure: 136/84 mmHg Rhythm: NSR Post procedural instructions were given Closure Device Time Device Success/Fail 11/19/2018 11:41:00 AM Mechanical Compression Successful Site Checks Time Location Status Staff Sheath In? Note 11:44 AM Rt Wrist No bleeding/hematoma Rupert Gilliland RT (R) Pulses Time Site Pre-Procedure Post-Procedure Note Bilateral DP & PT 2+ Bilateral radial 2+ 11:44:00 AM Rt Radial 1+ Updated by Bonny Mcintosh RT (R) on 11/19/2018 11:54:04 AM Bonny Mcintosh RT electronically signed on 11/19/2018 11:54:37 AM with status of Final
[2018-11-19] MEDS: Aspirin Enteric Coated 81 MG Tablet PO SCH (13:45)
[2018-11-19] MEDS ORDERED: amLODIPine 5 MG TABLET PO SCH (14:45)
[2018-11-19] MEDS ORDERED: Lisinopril 20 MG TABLET PO ONE (14:45)
[2018-11-19] MEDS ORDERED: amLODIPine 5 MG TABLET PO ONE (15:00)
[2018-11-19] MEDS ORDERED: Perflutren Lipid Microsphere 1.3 ML in 0.9 % Sodium Chloride 8.7 ML IVP ONE (19:51)
[2018-11-19] MEDS: *HR* Ticagrelor 90 MG TABLET PO SCH (21:36)
--- NOTE | 2018-11-20 03:29 | Electrocardiograph Report ---
[address] [place] [address] Test Date: 2018-11-19 Pat Name: [facility] Department: EXAM23 Room: 2A71 Gender: M Torpedo Specialist: : 1950 Requested By: Makr Acosta Order Number: [id number] Reading MD: Dheeraj Christie Measurements Intervals [place] Rate: 95 P: 46 WV: 172 QRS: 20 QRSD: 94 T: 12 QT: 348 QTc: 438 Interpretive Statements Sinus rhythm Possible extensive prior infarct, anterolateral and inferior Electronically Signed On 11-20-2018 3:27:29 EDT by Dheeraj Christie
--- NOTE | 2018-11-20 03:30 | Electrocardiograph Report ---
[address] [place], [place] [address] Test Date: 2018-11-19 Pat Name: [facility] Department: EXAM23 Room: 2A71 Gender: M Electrical Inspector: : 1950 Requested By: Amelia Rosen Order Number: [id number] Reading MD: Dheeraj Christie Measurements Intervals [place] Rate: 79 P: 38 ID: [id number] QRS: 5 QRSD: 116 T: 15 QT: 397 QTc: 456 Interpretive Statements Sinus rhythm Nonspecific intraventricular conduction delay Inferior infarct, old Consider anterolateral infarct Electronically Signed On 11-20-2018 3:28:16 EDT by Dheeraj Christie
[2018-11-20] MEDS: Insulin LISPRO 300 UNITS/3 ML VIAL SQ SCH ×2 (05:19→06:00)
[2018-11-20 06:42] LABS: Basophils # 0.1 K/mcL (0.0-0.2); Basophils % 0.7 %; Eosinophils # 0.2 K/mcL (0.0-0.6); Eosinophils % 1.7 %; Hematocrit 43.1 % (37.5-50.1); Hemoglobin 14.5 g/dL (12.9-16.9); Immature Granulocytes % 0.6 % (0-4); Lymphocytes # 2.6 K/mcL (0.6-4.6); Lymphocytes % 27.3 %; Mean Corpuscular HGB Conc 33.6 g/dL (31.6-35.5); Mean Corpuscular Hemoglobin 27.8 pg (28.0-33.3); Mean Corpuscular Volume 82.7 fL (83.0-100.0); Mean Platelet Volume 9.4 fL (9.4-12.4); Monocytes % 10.5 %; Neutrophils # 5.6 K/mcL (1.6-8.9); Platelet Count 251 K/mcL (140-400); Red Blood Count 5.21 M/mcL (4.19-5.50); Red Cell Distribution Width 14.5 % (11.5-14.5); Segmented Neutrophils % 59.2 %
[2018-11-20 07:03] LABS: BUN/Creatinine Ratio 15 (6-26); Blood Urea Nitrogen 15 mg/dL (8-23); Calcium 9.2 mg/dL (8.6-10.3); Carbon Dioxide 25 mEq/L (23-29); Chloride 104 mEq/L (98-107); Glucose 139 mg/dL (70-105); Osmolality,Calculated 287 (280-300); Potassium 3.8 mEq/L (3.5-5.1); Sodium 137 mEq/L (136-145); eGFR For Non-African Americans > 60 (> 60)
--- NOTE | 2018-11-20 07:09 | Cardiology Progress Note ---
Date of Encounter: 11/20/18 Time of Encounter: 07:05 Assessment and Plan (1) NSTEMI (non-ST elevated myocardial infarction) Current Visit: Yes Status: Acute Per Cardiology: Troponin 0.29 and 48.71. S/p LHC: Lesion Findings/Interventions * Left Main Coronary Artery There is a 40-45% stenosis in the Mid LMCA. * Left Anterior Descending There is a 24 mm long, 99% stenosis in the Mid LAD. The lesion has a GILBERTO flow of 2 and has no thrombus present. An intervention was performed on the Mid LAD with a final stenosis of 0%. There were no lesion complications. The final GILBERTO flow was 3. There is a 95% stenosis in the Distal apical LAD. * Circumflex -switchback takeoff The Distal Marginal has left to left collaterals. There is a 100% stenosis in the Distal Marginal, ANDROID PLATFORM DEVELOPER recannulized * Right Coronary Artery There is a 30% stenosis in the Mid RCA. There is a 60-70% stenosis in the Distal RCA. On aspirin, Brilinta (assistance card provided), statin, beta capo, ROWAN inhibitor. Echo pending. No events noted on telemetry. (2) HTN (hypertension) Current Visit: Yes Status: Acute Per Cardiology: Titrate BB or ACEI PRN. Qualifiers: Hypertension type: essential hypertension Qualified Code(s): I10 - Essential (primary) hypertension Discussion w patient/family: The assessment and plan as outlined above was discussed with the patient and/or family members who expressed understanding and agreement. All questions were answered. Thank you for involving us in the care of your patient. Please call with any questions. Subjective Principal diagnosis: NSTEMI Interval history: Denies any concerns over night. Denies any chest pain, shortness of breath, palpitations. Denies any right wrist cath site concerns. Anxious to go home. Objective Selected Entries 11/19/18 23:21 11/20/18 03:00 Temperature 98.5 F Pulse Rate 68 Respiratory Rate 17 Blood Pressure 146/88 O2 Sat by Pulse Oximetry 93 Oxygen Delivery Method Room Air General: Conversant, No Apparent Distress HEENT: Atraumatic, Normocephaly, Mucus Membranes Moist Neck: No JVD, Normal carotid pulses Cardiac: Reg Rate and Rhythm, Normal S1 and S2, No Murmur Lungs: Normal Breath Sounds, No Wheeze, Rales, Rhonchi Neuro: Alert and responsive, No focal deficits noted Abdomen: Soft, Non-Tender Skin: No rashes noted on visualized skin, Other (Right wrist site dry and intact, no hematoma, no bleeding, no ecchymosis, right radial pulse 2+ palpable) Musculoskeletal: No Chest Wall Tenderness Extremities: No Clubbing, No Cyanosis, No Edema, Normal Pulses Results 11/20/18 06:02 11/20/18 06:02 Lab Results Laboratory Tests 11/19/18 11/19/18 11/20/18 02:03 08:41 06:02 Hgb 14.5 Hct 43.1 Creatinine Est GFR (Non-Af Amer) Troponin I 0.29 H* 48.71 H* 11/20/18 06:02 Hgb Hct Creatinine 0.99 Est GFR (Non-Af Amer) > 60 Troponin I Active Medications Amlodipine Besylate (Norvasc) 10 mg PO DAILY [facility]; Protocol Stop: 05/22/19 09:01 Aspirin (Aspirin Ec) 81 mg PO DAILY [facility] Stop: 05/21/19 09:46 Last Admin: 11/19/18 13:45 Dose: 81 mg Atorvastatin Calcium (Lipitor) 40 mg PO HS [facility] Stop: 05/22/19 21:01 Dextrose/Water (Dextrose 50% (Syg)) 25 ml IVP AD PRN PRN Reason: Hypoglycemia Stop: 05/21/19 04:59 Glucagon (Glucagen) 1 mg IM ONCE PRN PRN Reason: Hypoglycemia Stop: 05/21/19 04:59 Glucose (Gluctose) 15 gm PO ONCE PRN PRN Reason: Hypoglycemia Stop: 05/21/19 04:59 Glucose (Gluctose) 30 gm PO ONCE PRN PRN Reason: Hypoglycemia Stop: 05/21/19 04:59 Hydrochlorothiazide (Hydrochlorothiazide) 25 mg PO DAILY [facility]; Protocol Stop: 05/22/19 09:01 Dextrose (Dextrose 5%) 1,000 mls @ 100 mls/hr IVC .Q10H PRN PRN Reason: HYPOGLYCEMIA Stop: 05/21/19 04:59 Insulin Human Lispro (Humalog) 0 units SQ Q6HR [facility]; Protocol Stop: 05/21/19 06:01 Last Admin: 11/20/18 06:00 Dose: Not Given Lisinopril (Zestril) 40 mg PO DAILY [facility]; Protocol Stop: 05/22/19 09:01 Metoprolol Tartrate (Lopressor) 12.5 mg PO BID [facility] Stop: 05/21/19 09:46 Last Admin: 11/19/18 21:36 Dose: 12.5 mg Naloxone HCl (Narcan) 0.4 mg IVP Q2M PRN PRN Reason: SEE COMMENTS Stop: 05/21/19 04:47 Ondansetron HCl (Zofran) 4 mg IVP Q6HR PRN; Protocol PRN Reason: Nausea And Vomiting Stop: 05/21/19 11:58 Tamsulosin HCl (Flomax) 0.4 mg PO DAILY [facility]; Protocol Stop: 05/22/19 09:01 Ticagrelor (Brilinta) 90 mg PO BID [facility] Stop: 05/21/19 21:01 Last Admin: 11/19/18 21:36 Dose: 90 mg - Imaging and Cardiology Echo: pending Cardiac cath: report reviewed - EKG Interpretation EKG results cardiology: other (Telemetry shows sinus rhythm with average heart rate 64 in the past 12 hours, no events noted) Consult Discharge Plan - Plan Referrals: NONE,PCP [Primary Care Provider] -
[2018-11-20 07:35] VITALS: BP 135/82
[2018-11-20] MEDS ORDERED: Lisinopril 20 MG TABLET PO SCH (09:00)
[2018-11-20] MEDS ORDERED: hydroCHLOROthiazide 25 MG TABLET PO SCH (09:00)
[2018-11-20] MEDS ORDERED: amLODIPine 5 MG TABLET PO SCH (09:00)
[2018-11-20] MEDS ORDERED: Aspirin 81 MG TAB.CHEW PO SCH (09:00)
[2018-11-20] MEDS ORDERED: Saline Nasal Spray 44 ML BOTTLE NS PRN (09:00)
--- NOTE | 2018-11-20 09:19 | Discharge Summary ---
<Ernie Sprague - Last Filed: 11/20/18 10:51> - NOTES TO OUTPATIENT PROVIDER Notes to Outpatient Provider: Patient admitted with NSTEMI with troponin peak of 46. Underwent left heart catheterization with cardiology and had 1 drug-eluting stent placed to the mid LAD. Started on brilinta and aspirin. Orders not resulted at time of discharge: Pending orders 11/19/18 09:38 EKG [ECG 12 lead ECG] [ECG] Stat 11/19/18 11:56 ECG 12 lead ECG [ECG] Stat 11/20/18 06:00 ECG 12 lead ECG [ECG] AM 0600 Date of Encounter: 11/20/18 Time of Encounter: 09:10 - Discharge Diagnosis (1) NSTEMI (non-ST elevated myocardial infarction) Priority: Primary Status: Acute (2) Prediabetes Priority: Secondary Status: Acute (3) Lipoma Priority: Secondary Status: Suspected Qualifiers: Lipoma location: trunk Qualified Code(s): D17.1 - Benign lipomatous neoplasm of skin and subcutaneous tissue of trunk (4) HTN (hypertension) Priority: Secondary Status: Chronic Qualifiers: Hypertension type: essential hypertension Qualified Code(s): I10 - Essential (primary) hypertension (5) DVT prophylaxis Priority: Secondary Status: Acute Hospital course: Mr. Golden is a 68 year old male with past medical history of hypertension and BPH presents to emergency room with complaint of chest pain. It was substernal in nature and were present for 3 months previously. He has had this previously however last couple days it is no longer just with exertion and now is present at rest. Vital signs on presentation significant for heart rate of 101 as well as blood pressure 176/102. Troponin results on presentation significant for a troponin of 0.29 which was trended and did peak at 48.71. Cardiology was consult and an did perform left heart catheterization which showed significant stenosis of the mid LAD which did receive 1 drug-eluting stent. He was started on brilinta as well as aspirin, statin, beta capo. Following catheterizatio n, patient's chest pain has resolved. Lipid panel shows elevated triglycerides of 413, HDL low at 30, LDL was not performed. Patient does have an echocardiogram and will have discharge pending her results per cardiology team. Patient was seen in excess to had no concerns at this time. He states he will follow-up with cardiology as well as primary care physician. He is medically stable for discharge at this time. All questions were answered Discharge discussed with: patient, social work, telesales consultant - Time Spent with Patient Total time spent providing and/or coordinating discharge services: - Discharge Medications Prescriptions: New RX: Aspirin Enteric Coated [Aspirin EC] 81 mg PO DAILY #30 tablet. RX: Atorvastatin [Lipitor] 40 mg PO HS #30 tablet RX: Metoprolol [Lopressor] 12.5 mg PO BID #30 tablet RX: Ticagrelor [Brilinta] 90 mg PO BID #60 tablet Continue RX: Naproxen Sodium [Aleve] 440 mg PO QAM PRN PRN Reason: Knee Pain RX: hydroCHLOROthiazide [Hydrochlorothiazide] 25 mg PO DAILY RX: Lisinopril [Zestril] 40 mg PO DAILY RX: amLODIPine [Norvasc] 10 mg PO DAILY RX: Tamsulosin HCl [Flomax] 0.4 mg PO DAILY RX: Tadalafil 20 mg PO Q48H PRN PRN Reason: Erectile Dysfunction Home Medications: RX: Lisinopril [Zestril] 40 mg PO DAILY 11/19/18 [History] RX: Naproxen Sodium [Aleve] 440 mg PO QAM PRN 11/19/18 [History] RX: Tadalafil 20 mg PO Q48H PRN 11/19/18 [History] RX: Tamsulosin HCl [Flomax] 0.4 mg PO DAILY 11/19/18 [History] RX: amLODIPine [Norvasc] 10 mg PO DAILY 11/19/18 [History] RX: hydroCHLOROthiazide [Hydrochlorothiazide] 25 mg PO DAILY 11/19/18 [History] RX: Aspirin Enteric Coated [Aspirin EC] 81 mg PO DAILY #30 tablet. 11/20/18 [Rx] RX: Atorvastatin [Lipitor] 40 mg PO HS #30 tablet 11/20/18 [Rx] RX: Metoprolol [Lopressor] 12.5 mg PO BID #30 tablet 11/20/18 [Rx] RX: Ticagrelor [Brilinta] 90 mg PO BID #60 tablet 11/20/18 [Rx] Allergies/Adverse Reactions: Allergy/AdvReac Type Severity Reaction Status Date / Time No Known Allergies Allergy Verified 11/19/18 01:54 Date of admission: 11/19/18 09:43 Primary care physician: PCP NONE Consults: 11/19/18 04:49 Consult to Cardiology [CONS] Stat Comment: Consulting Provider: Cardiology Anna Reason for Consult: NSTEMI/Dr. Carter notified overnight Call Completed: No 11/19/18 09:40 Consult to Cardiac Rehabilitation-Phase1 [CONS] Routine Comment: Reason for Consult: NSTEMI Call Completed: Yes 11/19/18 11:56 Consult to Cardiac Rehabilitation-Phase1 [CONS] Routine Comment: Reason for Consult: post op PCI Call Completed: Yes Discharging clinician: Ernie Sprague Anticipated date of discharge: 11/20/18 - Constitutional Vitals: Temp Pulse Resp BP Pulse Ox 98.2 F 73 20 135/82 96 11/20/18 07:28 11/20/18 07:28 11/20/18 07:28 11/20/18 07:28 11/20/18 07:28 General appearance: Present: A&O X 3, pleasant, no acute distress Exam: Gen.: Vitals noted. No acute distress. AAOx3, resting comfortably in bed. HEENT: PERRL/EOMI, oropharynx clear, Normocephalic, atraumatic, MMM Cardiac: RRR, no murmur, +S1/S2, No BLE edema Pulmonary: CTA bilaterally, no wheezes, rales or rhonchi, equal chest expansion, unlabored breathing Abdomen: soft, nontender, BS noted, no guarding, no palpable HSM Skin: warm and dry, no visible lesions. MSK: ROM intact, no joint swelling noted, gait no assessed while in bed. Non tender calf or clubbing Neuro: A&Ox3, moves all extremities, no focal deficits Psych: Appropriate mood and behavior, AOx3 - Patient Status Disposition: Home, Self-Care Condition: Good Functional capacity at discharge: independent ambulation Overall status at discharge: patient is back to baseline - Discharge Instructions Instructions: Myocardial Infarction (DC), Heart Healthy Diet (DC), Meal Planning with Diabetes Exchanges (DC) Follow Up With: Jamie Torres, FOOT WORKER [Advanced Practice Nurse] - (Office will call you with an appoitment date and time. Thank you!) Additional Instructions: Please follow up with a primary care physician within 3-5 days as well as cardiology. Take all medications as prescribed and return to emergency department with any worsening of symptoms. - Diet and Activity Activity: increase activity as tolerated, return to work once cleared by your PCP/specialist, resume usual activities as tolerated Diet: advance to your usual diet, low fat, low cholesterol <Andrea Navarrete - Last Filed: 11/20/18 17:36> Orders not resulted at time of discharge: Pending orders 11/19/18 09:38 EKG [ECG 12 lead ECG] [ECG] Stat 11/19/18 11:56 ECG 12 lead ECG [ECG] Stat 11/20/18 06:00 ECG 12 lead ECG [ECG] AM 0600 Date of Encounter: 11/20/18 - Discharge Diagnosis (1) NSTEMI (non-ST elevated myocardial infarction) Status: Acute (2) Prediabetes Status: Acute (3) Lipoma Status: Suspected Qualifiers: Lipoma location: trunk Qualified Code(s): D17.1 - Benign lipomatous neoplasm of skin and subcutaneous tissue of trunk (4) HTN (hypertension) Status: Chronic Qualifiers: Hypertension type: essential hypertension Qualified Code(s): I10 - Essential (primary) hypertension (5) DVT prophylaxis Status: Acute (6) HLD (hyperlipidemia) Priority: Secondary Status: Chronic Qualifiers: Hyperlipidemia type: mixed hyperlipidemia Qualified Code(s): E78.2 - Mixed hyperlipidemia Hospital course: Mr. Golden is a 68 year old male - Time Spent with Patient Total time spent providing and/or coordinating discharge services: 38min Date of admission: 11/19/18 09:43 Primary care physician: PCP NONE Consults: 11/19/18 04:49 Consult to Cardiology [CONS] Stat Comment: Consulting Provider: Cardiology Anna Reason for Consult: NSTEMI/Dr. Carter notified overnight Call Completed: No 11/19/18 09:40 Consult to Cardiac Rehabilitation-Phase1 [CONS] Routine Comment: Reason for Consult: NSTEMI Call Completed: Yes 11/19/18 11:56 Consult to Cardiac Rehabilitation-Phase1 [CONS] Routine Comment: Reason for Consult: post op PCI Call Completed: Yes - Constitutional Vitals: Temp Pulse Resp BP Pulse Ox 98.2 F 73 20 135/82 96 11/20/18 07:28 11/20/18 07:28 11/20/18 07:28 11/20/18 07:28 11/20/18 07:28 - Attending Attestation I examined this patient and my medical decision-making was reviewed with the Resident Physician on 11/20/18. I agree with the documented findings, disposition and treatment plan as described except to the extent set forth below. Mr Golden has been admitted for acute NSTEMI. He underwent LHC and had stent to LAD. He has done well. He is ambulating without difficulty and is ready for discharge home. Exam alert Comfortable Mucus membranes dry Heart reg No wheeze No edema Plan D/C home today.
[2018-11-20] MEDS: Aspirin Enteric Coated 81 MG Tablet PO SCH (09:31)
[2018-11-20] MEDS: *HR* Ticagrelor 90 MG TABLET PO SCH (09:31)
--- NOTE | 2018-11-20 11:37 | Event Note ---
Date of Encounter: 11/20/18 Time of Encounter: 11:35 - Cardiology Event Note Per Dr. Morley, EF preserved on echo, ok to proceed with DC to home. Cardiology signing off, f/u arranged.
--- NOTE | 2018-11-21 09:33 | Event Note ---
Date of Encounter: 11/20/18 Time of Encounter: 16:00 - Cardiology Event Note Patient called from home stating that he was experiencing shortness of breath since Brillinta was started. No cough, chest pain, palpitations. He had a mid LAD stent placed on 11/19/18, with a 40-45% LM stenosis. Echocardiogram showed preserved ejection fraction with no significant valvular dysfunction. A prescription for Plavix 300 mg stat followed by 75 mg daily was called to his pharmacy, and patient was instructed to take Plavix with aspirin, rather than Brillinta. However if shortness of breath does not improve he was instructed to seek emergency medical assessment. He voiced understanding.
== END 2018-11-20 12:45 | disposition home or self-care (01) | DRG 247 ==
LOC: SUATTDRO → 2SOUTHHOLD 01:23 → EMEROOARM 01:23 → SUATTDRO 04:51 → 2SOUTHHOLD 05:17 → 2ANU 15:12
PROVIDERS: ADMIT Internal Medicine; ATTEND Internal Medicine